=== PATIENT | female | born 1940 | race Caucasian/White ===

== ENCOUNTER 2021-06-15 09:15 | Outpatient (REF) | payer MEDICARE, BC, SELFPAY ==
--- NOTE | 2021-06-16 08:14 | MHC.AU.AEV ---
Adult Audiological Evaluation Date of Visit: 06/15/21 Reason for Appointment: Patient has been noticing gradually increasing hearing difficulty over the last several years. She reports that she had her hearing tested at [facility] several years ago and was told she was almost at the point of needing hearing aids. She has difficulty hearing in groups. She finds herself asking for repetition or mishearing people more often. She also has a history of bilateral tinnitus that seems slightly worse in the left ear. Does patient feel they have a hearing loss?: Yes If Yes, Which Ear?: Both Ears Ear History: Ear Deformity: None Reported Recent Ear Drainage: None Reported Family History of Hearing Loss?: No Recent Ear Infections: None Reported Ear Infections in Childhood: None Reported History of Ear Wax Buildup: None Reported Previous Ear Surgery: None Reported Bothersome Tinnitus/Ringing/Noises in Ears: Both Ears Ear used on the phone: Right Ear Blocked/Full Sensation in Ear(s): None Reported History of occupational noise exposure?: No History: No Medical History: Medical History: 2 Hip replacements, Colon Surgery Otoscopy: Right Ear: Unremarkable Left Ear: Unremarkable Tympanometry: Tympanometry performed due to: To assess integrity of the middle ear system Right Ear: Normal Middle Ear System (Type A) Left Ear: Normal Middle Ear System (Type A) Hearing Evaluation: Transducer(s) Used: Insert Earphones Method: Conventional Audiometry Stimuli Used: Pure Tones Right Ear: Description of Hearing: Borderline/mild to severe sensorineural hearing loss Left Ear: Description of Hearing: Borderline/mild to severe sensorineural hearing loss Speech Recognition Threshold (SRT): Method Used: Recorded Lists Stimuli Used: Spondee Words Right Ear: 25 dBHL Left Ear: 30 dBHL Word Discrimination: Method: Recorded Lists Word Lists Used:: W-22 Right Ear: 92% at 70 dBHL Left Ear: 76% at 70 dBHL Most Comfortable Level (MCL): Right Ear: 70 dBHL Left Ear: 70 dBHL Interpretation of Results: Patient presents with borderline/mild sloping to severe sensorineural hearing loss. With this degree of hearing loss, people often find that while they hear people talking, they have difficulty making out what was said. Speech can seem less clear. Sounds that may be particularly difficult to hear include high-pitched consonants, such as /s/, /sh/, /th/, /f/, /k/, /ch/, /p/, /k/, and /g/. This can lead to misunderstandings (ex. the words mouth and mouse may sound similar). It is more difficult to hear and understand speech when there is background noise, multiple people are talking, or when the person talking is not directly in front of the listener. Recommendations: Audiological re-evaluation in one year. Patient feels she is ready for amplification. See Hearing Aid Evaluation report for details. Diagnosis: Primary Diagnosis: H90.3 Bilateral Sensorineural Hearing Loss Secondary Diagnosis: H93.13 Tinnitus, Bilateral Signature: Provider: Reta Purvis, [facility]
== END 2021-06-15 09:16 | disposition home or self-care (01) ==
LOC: HO.SH 09:15
PROVIDERS: Visit Provider Internal Medicine
DX: H91.90 Unspecified hearing loss, unspecified ear (principal)
CPT/HCPCS: 92557; 92567

== ENCOUNTER 2021-06-15 10:43 | Outpatient (REF) | payer SELFPAY ==
--- NOTE | 2021-06-15 13:35 | MHC.AU.HAS ---
Hearing Aid Evaluation Date of Visit: 06/15/21 Historical Information: Description of Hearing: Mild to severe sensorineural hearing loss bilaterally Summary: Patient was seen for audiological evaluation (see separate report for details). Patient is interested in amplification. She would like a rechargeable model. She has an iPhone. Hearing Aid Prescription: Based on the individual?s shared listening needs, communication environments, dexterity, desire for connectivity, and personal preferences, the following prescription for amplification has been made: Right ear: Consulting Business Developer: Phonak Model: Audeo P70-R Battery Size: Rechargeable Color: P1 Job Press Feeder: 1M Left ear: Consulting Business Developer: Phonak Model: Audeo P70-R Battery Size: Rechargeable Color: P1 Job Press Feeder: 1M Action Taken/Action Needed: Hearing Instrument Fitting to be scheduled when materials arrive Comments: Paid $350 deposit Primary Diagnosis: H90.3 Bilateral Sensorineural Hearing Loss Secondary Diagnosis: H93.13 Tinnitus, Bilateral Signature: Provider: Reta Purvis, CLAUDY-A
== END 2021-06-15 10:44 | disposition home or self-care (01) ==
LOC: HO.HAP 10:43
PROVIDERS: Visit Provider Internal Medicine
DX: Z46.1 Encounter for fitting and adjustment of hearing aid (principal); H90.3 Sensorineural hearing loss, bilateral; H93.13 Tinnitus, bilateral
CPT/HCPCS: 92591

== ENCOUNTER 2021-07-13 12:22 | Outpatient (REF) | payer SELFPAY ==
--- NOTE | 2021-07-13 15:13 | MHC.AU.HFA ---
Hearing Instrument Fitting- Adult- Binaural Date of Visit: 07/13/21 Hearing Instruments Dispensed: Right Ear: Striker Off: Phonak Model: Audeo P70-R Serial Number: [id number] Repair Warranty: 09/16/2024 Loss and Damage Warranty: 09/16/2024 Service Plan: 09/16/2024 Battery Size: Rechargeable Color: P1 Operational Intelligence Officer: 1M Type of Dome: Small Open Type of Wax Guard: CeruShield Left Ear: Striker Off: Phonak Model: Audeo P70-R Serial Number: [id number] Repair Warranty: 09/16/2024 Loss and Damage Warranty: 09/16/2024 Service Plan: 09/16/2024 Battery Size: Rechargeable Color: P1 Operational Intelligence Officer: 1M Type of Dome: Small Open Type of Wax Guard: CeruShield Summary of Fitting: Feedback construction operations manager was run. Verifit performed and levels adjusted to better reach targets. Patient felt 100% target was too loud/echoing. Lowered to 80% target, with improvement. Patient still felt her own voice was louder than usual- counseled that she was speaking at a normal volume, and that she is hearing aspects of her voice she has not heard in awhile. It will take some adjustment to get used to hearing her own voice again. Patient otherwise noted an improvement in understanding of speech. Hearing aid maintenance and use were discussed and practiced. Patient was initially feeling overwhelmed with the amount of new information to learn. We will go over changing the wax guards at the follow-up. We will also discuss whether or not she would like to have us pair them to her iPhone. Recommendations: A hearing instrument follow-up was scheduled. Paid balance of hearing aids. Diagnosis Code(s): Primary Diagnosis: H90.3 Bilateral Sensorineural Hearing Loss Secondary Diagnosis: H93.13 Tinnitus, Bilateral Signature: Provider: Reta Purvis, CLAUDY-A
== END 2021-07-13 12:23 | disposition home or self-care (01) ==
LOC: HO.HAP 12:22
PROVIDERS: Visit Provider Internal Medicine
DX: Z46.1 Encounter for fitting and adjustment of hearing aid (principal); H90.3 Sensorineural hearing loss, bilateral; H93.13 Tinnitus, bilateral
CPT/HCPCS: V5261; V5299

== ENCOUNTER 2023-11-05 17:19 | Emergency (ER) | payer MEDICARE, BC, SELFPAY ==
--- NOTE | ~2023-11-05 | CT_ITS ---
EXAMINATION: CT HEAD WITHOUT CONTRAST, CT CERVICAL SPINE WITHOUT CONTRAST CLINICAL INFORMATION: Head trauma on Xarelto. Neck trauma COMPARISON: None. TECHNIQUE: Multidetector CT examination of the head is performed without contrast. Multidetector CT of the cervical spine without contrast. Multiplanar postprocessing This CT examination was performed using dose optimization techniques as appropriate, variously including the following: *Automated exposure control *Adjustment of mA and/or kV according to patient size (this includes techniques or standardized protocols for targeted exams where dose is matched to indication/reason for exam; i.e. extremities or head) *Use of iterative reconstruction technique DLP: 1076 mGy-cm FINDINGS: Head CT: There is no evidence of a recent intracranial hemorrhage or extra-axial collection. The midline structures are nondisplaced. There is a 0.7 cm hyperdense mass near the foramen of Monro. No significant dilation of the lateral ventricles. No epidural collection. There is no evidence of an intra-axial mass. There are no suspicious focal areas of abnormal brain attenuation. The wells-white interface is within normal limits. There is no evidence of acute territorial infarct. Moderate matter low attenuation possibly related to microangiopathy The paranasal sinuses and mastoids are within normal limits. No fracture demonstrated Cervical CT: There is no acute fracture or subluxation. No suspicious focal lesion or loss of volume. There is disc narrowing. There are marginal osteophytes. There is facet narrowing. There is a solid 4.1 cm left thyroid mass with partial calcification. CT/CT cervical spine wo IV con IMPRESSION: 1. There is no evidence of a recent intracranial hemorrhage. 2. No acute infarct. 3. No acute fracture or subluxation of the cervical spine Small hyperdense mass at the foramen of Monro without hydrocephalus. Small colloid cyst could be present. There is a greater than 4 cm solid left thyroid nodule. Depending upon clinical circumstances recommend ultrasound.
--- NOTE | ~2023-11-05 | CT_ITS ---
EXAMINATION: CT ANGIOGRAM CHEST CLINICAL INFORMATION: Near syncope. COMPARISON: Chest radiograph done earlier the same day. TECHNIQUE: Multiple axial images were obtained through the chest after the administration of 70 mL of Omnipaque 350 intravenous contrast. Extensive vascular post-processing including two-dimensional and three-dimensional reformatted images were created and reviewed on an independent workstation. This CT examination was performed using dose optimization techniques as appropriate, variously including the following: *Automated exposure control. *Adjustment of mA and/or kV according to patient size (this includes techniques or standardized protocols for targeted exams where dose is matched to indication/reason for exam; i.e. extremities or head). *Use of iterative reconstruction technique. DLP: 291 mGy-cm FINDINGS: THORACIC AORTA: The ascending thoracic aorta measures up to 3.9 cm. No significant thoracic aortic dilatation. No dissection. Prominent atherosclerotic plaques throughout the abdominal aorta. The visualized upper abdominal vascular structures are unremarkable. No upper abdominal aortic dilatation. PULMONARY ARTERIES: No significant central or segmental pulmonary embolism; however, evaluation limited secondary to contrast bolus timing. LUNG: Posterior right upper lobe subpleural nodule measuring up to 0.4 cm (axial image 164/611). More anterior right upper lobe pulmonary nodule measuring up to 0.3 cm (axial image 215/611). Right middle lobe pulmonary nodule measuring up to 0.8 x 0.5 cm for an average of 6.5 cm (axial image 329/611). Lateral left upper lobe pulmonary nodule measuring up to 0.4 cm. No large pulmonary mass. No confluent airspace consolidation. The central airways are patent. PLEURA: No pleural effusion or pneumothorax. MEDIASTINUM: Normal heart size. No pericardial effusion. No hilar or mediastinal lymphadenopathy. No evidence of septal bowing or right heart strain. Significantly enlarged and lobulated left thyroid measuring up to 4.8 cm with mass effect in the adjacent superior mediastinal structures. Medial and anterior calcification. Heterogeneous thyroid enhancement. Follow-up ultrasound is recommended. CORONARY ARTERY CALCIFICATION: Present. CHEST WALL/AXILLA: No axillary or internal mammary lymphadenopathy. OSSEOUS STRUCTURES: No acute or suspicious osseous abnormality. UPPER ABDOMEN: Unremarkable. No reflux of contrast into the hepatic veins to suggest elevated right heart pressures. CT/CT angio chest aorta IMPRESSION: 1. No thoracic aortic dilatation or dissection. Prominent atherosclerotic plaques throughout the visualized abdominal aorta. 2. Multiple bilateral pulmonary nodules measuring up to 6.5 cm on the right. According to the UPDATED 2017 Fleischner Society recommendations, the advised follow-up imaging for a single 6-8 mm solid nodule is follow-up CT at 6 to 12 months. In high-risk patients, subsequent CT follow-up at 18 to 24 months is recommended. In low-risk patients, subsequent CT follow-up at 18 to 24 months is optional. 3. No confluent airspace consolidation. 4. Significantly enlarged and lobulated left thyroid measuring up to 4.8 cm with mass effect in the adjacent superior mediastinal structures. Follow-up ultrasound is recommended. VTE: Negative. Fleischner guidelines were followed.
--- NOTE | ~2023-11-05 | XR_ITS ---
EXAMINATION: XR CHEST CLINICAL INFORMATION: Weakness, fall. COMPARISON: None available. TECHNIQUE: AP view of the chest was obtained. FINDINGS: Mild diffuse interstitial prominence. No focal consolidation or pleural effusion. No pulmonary edema. Nonspecific widening of the cardiomediastinum at the level of the thoracic inlet. Moderate to severe vascular calcifications in the aortic arch. Normal heart size. Degenerative changes of the shoulders. No acute osseous findings. XR/XR chest 1V IMPRESSION: 1. Nonspecific widening of the cardiomediastinum at the level of the thoracic inlet. Further evaluation with a CT chest with IV contrast could be obtained as clinically warranted. 2. Mild diffuse interstitial prominence which could be seen acutely in the context of small airways disease or chronically in the context of COPD, emphysema or interstitial lung disease. 3. No consolidation or pleural effusion. No pneumothorax. 4. No displaced rib fractures.
--- NOTE | 2023-11-05 17:48 | ECG_ITS ---
Test Reason : FALL Blood Pressure : / mmHG Vent. Rate : 064 BPM Atrial Rate : 064 BPM P-R Int : 172 ms QRS Dur : 134 ms QT Int : 498 ms P-R-T Axes : 079 153 014 degrees QTc Int : 513 ms Sinus rhythm with Premature atrial complexes Right bundle branch block Abnormal ECG No previous ECGs available Referred By: Muriel Guidry Electronically Signed By:Javy Wallace
[2023-11-05 17:49] VITALS: BP 139/79; BP 80/40; PULSE 66; PULSE 80; RESP 18; TEMP 36.6; O2SAT 97; O2SAT 98; BMI 22.6
--- NOTE | 2023-11-05 17:53 | ED.FALL ---
HPI - Fall General Chief Complaint: Fall Stated Complaint: Multiple falls/low BP, +collar per ems Source: patient, family and old records reviewed Mode of arrival: EMS Limitations: other (patient is a poor historian) History of Present Illness HPI Narrative: 83 yo female with PMH of PAF on xarelto, ectatic aorta, fatty infiltration of the liver, memory loss, BONNY, prolonged qtc interval, pulmonary embolus, colon cancer 2017 s/p transverse hemicolectomy and prior near syncope work ups at [facility] she states a few admissions with negative findings. She comes in tonight with c/o the past week having a hard time when she gets up from the rollator she uses then turns quickly to the right. She then ends up on the floor but has no LOC. She has hit her head. She came in today with c/o intermittent falls, contusion to head. She wants to know why this keeps happening to her. Has fallen about 4 times in 3 days. Hx of falls last Thanks and then this Thanks. complaint: fall Onset (ago): week(s) (1) Fall from: standing Fall witnessed: no Place fall occurred: home Loss of consciousness: none Prolonged down time: no Symptoms prior to fall: other (denies states she stands up then turns and falls) Context: history of frequent falls Location of injury: head Severity: moderate Associated symptoms (after fall): denies Related Data Allergies Allergy/AdvReac Type Severity Reaction Status Date / Time acetaminophen [From Percocet] Allergy Unknown Verified 11/05/23 17:52 morphine Allergy Nightmare Verified 11/05/23 17:52 oxycodone [From Percocet] Allergy Unknown Verified 11/05/23 17:52 Review of Systems Review of Systems: Constitutional : No Fever, No Chills, No Fatigue ENT/Mouth : No sore throat, No Rhinorrhea Eyes: No Eye Pain, No Swelling, No Redness Cardiovascular : No Chest Pain, No SOB, No Dyspnea on Exertion Respiratory : No Cough, No Sputum Gastrointestinal : No Nausea, No Vomiting, No Diarrhea, No abdominal Pain Genitourinary : No Dysuria, No Urinary Frequency, No Hematuria, Musculoskeletal : No joint pain, No Myalgias, No Joint Swelling Skin : No Skin Lesions, No rash Neuro : No Weakness, No Numbness, No Dizziness, positive Headache, pos syncope Psych : No Anxiety/Panic, No Depression All other systems reviewed and are negative [facility] Past Medical History Attestation statement: The following information was validated with the patient. Medical History (Updated 11/05/23 @ 21:56 by Muriel Guidry DO) Internal bleeding Falls Atrial fibrillation Social History Social History (Updated 11/05/23 @ 17:59 by Muriel Guidry DO) Patient Tobacco Use Status: Never used Tobacco Smoked in Last 30 Days: No Use of substances other than those prescribed or required for medical reasons: No Advance Directives: No Advance Directives Information Provided: No Physical Exam Vital Signs: Vital Signs: Last Vital Signs Temp 98.2 F 11/05/23 21:39 Pulse 72 11/05/23 21:39 Resp 20 11/05/23 21:39 BP 161/89 H 11/05/23 21:39 Pulse Ox 98 11/05/23 21:39 O2 Del Method Room Air 11/05/23 21:39 BMI result Body Mass Index 22.6 Appearance: Alert. Oriented X3. No acute distress. Eyes: Pupils equal, round and reactive to light. ENT: Pharynx normal. R parietal scalp contusion noted Neck: Normal inspection. Neck supple. no midline ttp CVS: Normal heart rate and rhythm. Pulses normal. Respiratory: No respiratory distress. Breath sounds normal. Abdomen: Soft and non-tender. Skin: Skin warm and dry. Normal skin color. Normal skin turgor. Extremities: No lower extremity edema. No calf ttp Neuro: Oriented X 3. No motor deficit. No sensory deficit. Course Course Course Narrative: mild drop in orthostatics but did not become hypotensive CXR abnormal CTA ordered Reevaluation(s) Reevaluation #1: records from [facility] only show urgent care there is no record of visit with internal bleeding - call sent again Reevaluation #2: repeat call to [facility] they cannot access records right now 921pm signed out to Dr. Lopez pending UA and PT/CM CTA no vasovagal syncope she has not had LOC no resp issues will consult onc in AM for outpatient follow up and biopsy Medications Administered Discontinued Medications Generic Name Dose Route Start Last Admin Trade Name Freq PRN Reason Stop Dose Admin Sodium Chloride 500 mls @ 500 mls/hr 11/05/23 19:30 11/05/23 21:00 Ns IV 11/05/23 20:29 Infused .Q1H RAJEEV Infusion Iohexol 100 ml 11/05/23 20:52 11/05/23 20:52 Iohexol 350 Mg/Ml 100 Ml Infus..Btl IV 11/05/23 20:53 70 ml ONCE ONE Administration Medical Decision Making Medical Decision Making [facility] Narrative: 83 yo female from home with PAF on xarelto here with c/o recurrent falls when she gets up to stand. At this time will need basic labs, orthostatic VS, EKG, CT head/cspine given age and DOAC use with headstrike though no LOC. Possible anemia, orthostatic hypotension. She tells me she has been admitted more than once at [facility] for this with negative workup she has not seen PT for gait issues. If work up negative may refer to PT in AM for gait issues and concerns. Differential Diagnosis Differential Diagnoses: The differential diagnosis associated with the presentation includes orthostatic hypotension, gait instability, weakness, anemia, dehydration Admission/Observation Consideration of admission/observation: Escalation of care including admission/observation considered observe at minimum for falls pending UA Lab Data [facility] Lab Attestation statement: I reviewed the patient's lab results. 11/05/23 20:02 11/05/23 20:02 Labs: Lab Results 11/05/23 Range/Units 20:02 WBC 8.2 (4.8-10.8) X10*3/uL RBC 4.31 (4.20-5.50) X10*6/uL Hgb 13.3 (12.0-16.0) g/dl Hct 38.3 (37.0-47.0) % MCV 88.9 (80.0-98.0) fL MCH 30.9 (27.0-33.0) pg MCHC 34.7 (31.0-35.0) g/dl RDW 13.9 (11.0-16.0) % Plt Count 234 (160-400) X10*3/uL MPV 9.8 (9.4-12.3) fL Immature Gran % (Auto) 1.0 H (0.0-0.4) % Neut % (Auto) 73.6 H (45-73) % Lymph % (Auto) 14.9 L (20-40) % Bibb % (Auto) 9.8 (2-11) % Eos % (Auto) 0.2 (0-4) % Baso % (Auto) 0.5 (0-2) % Lymph # (Auto) 1.2 (1.2-4.9) X10*3/uL Bibb # (Auto) 0.8 (0.1-1.2) X10*3/uL Eos # (Auto) 0.0 (0.0-0.4) X10*3/uL Baso # (Auto) 0.0 (0.0-0.2) X10*3/uL Abs Immat Gran (auto) 0.08 H (0.00-0.03) X10*3/uL Absolute Neuts (auto) 6.0 (2.0-8.3) x10*3/uL Absolute Nucleated RBC 0.000 (0.0-0.012) X10*3/uL Nucleated RBC % (auto) 0.0 (0.0-0.2) /100WBC Sodium 140 (135-145) mmol/L Potassium 4.3 (3.3-5.1) mmol/L Chloride 105 (96-108) mmol/L Carbon Dioxide 29 (22-29) mmol/L Anion Gap 10 L (12-20) BUN 15 (9-16) mg/dL Creatinine 0.85 (0.5-1.4) mg/dL Estim Creat Clear Calc 46.9 Estimated GFR > 60 Random Glucose 97 (60-115) mg/dL Calcium 9.2 (8.4-10.2) mg/dL Magnesium 2.1 (1.6-2.6) mg/dL Total Bilirubin 0.9 (0.0-1.0) mg/dL Direct Bilirubin 0.4 (0.0-0.5) mg/dL AST 35 H (5-31) U/L ALT 28 (0-31) U/L Alkaline Phosphatase 45 (39-117) U/L Total Creatine Kinase 27 (26-140) U/L Troponin I High Sens 10.2 (<3.5-17.0) ng/L Total Protein 5.9 L (6.5-8.0) g/dL Albumin 3.5 (3.5-5.0) g/dL Lipase 11 (8-78) U/L TSH 1.36 (0.32-4.0) uIU/mL Independent Interpretation I performed an independent interpretation of an: EKG, Plain X-Ray and CT Scan (abnormal lungs and large thyroid nodule) Interpretation: Rate: 64 Rhythm: NSR with PACs [place]: normal Normal P waves. Normal TATA. RBBB ST T wave : no CHUCK, inverted t waves V1-V3 qTC: 513 prior studies: no prior The study has been interpreted contemporaneously by me. . Radiology Impression Discussion of test interpretation with radiology: I have reviewed the radiologist's reading. Independent Historian Clinical information obtained from an independent historian. History obtained from or confirmed by: EMS and Other (daughter) External Record Review External record reviewed: Outpatient record Discharge Plan Discharge Clinical Impression: Recurrent falls, Lung nodule, Left thyroid nodule Patient Disposition: Still a Patient Additional Instructions: Small hyperdense mass at the foramen of Monro without hydrocephalus. Small colloid cyst could be present. primary care should monitor regularly with CT scan or MRI for signs of hydrocephalus can also refer to neurosurgery or Neurology
[2023-11-05 17:59] VITALS: RESP 18
[2023-11-05 18:16] VITALS: BP 144/79; PULSE 62
[2023-11-05 18:17] VITALS: BP 145/68; PULSE 99
[2023-11-05 18:18] VITALS: BP 121/76; PULSE 87
[2023-11-05] MEDS: 0.9 % Sodium Chloride 500 ML IV (20:00)
[2023-11-05 20:09] LABS: MANUAL DIFF FLAG NO
[2023-11-05 20:12] LABS: Basophils Percent Auto 0.5 % (0-2); Eosinophils Percent Auto 0.2 % (0-4); Hematocrit 38.3 % (37.0-47.0); Hemoglobin 13.3 g/dl (12.0-16.0); Imm Gran Abs Auto 0.08 X10*3/uL (0.00-0.03); Lymphocytes Absolute Auto 1.2 X10*3/uL (1.2-4.9); Lymphocytes Percent Auto 14.9 % (20-40); Mean Corpuscular HGB Conc 34.7 g/dl (31.0-35.0); Mean Corpuscular Hemoglobin 30.9 pg (27.0-33.0); Mean Corpuscular Volume 88.9 fL (80.0-98.0); Mean Platelet Volume 9.8 fL (9.4-12.3); Monocytes Absolute Auto 0.8 X10*3/uL (0.1-1.2); Monocytes Percent Auto 9.8 % (2-11); Neutrophils Percent Auto 73.6 % (45-73); Platelet Count 234 X10*3/uL (160-400); Red Blood Count 4.31 X10*6/uL (4.20-5.50); Red Cell Distribution Width 13.9 % (11.0-16.0); White Blood Count 8.2 X10*3/uL (4.8-10.8)
[2023-11-05 20:27] LABS: Alanine Aminotransferase 28 U/L (0-31); Albumin Level 3.5 g/dL (3.5-5.0); Alkaline Phosphatase 45 U/L (39-117); Anion Gap 10 (12-20); Aspartate Amino Transferase 35 U/L (5-31); Bilirubin Direct 0.4 mg/dL (0.0-0.5); Bilirubin Total 0.9 mg/dL (0.0-1.0); Blood Urea Nitrogen 15 mg/dL (9-16); Calcium 9.2 mg/dL (8.4-10.2); Carbon Dioxide 29 mmol/L (22-29); Chloride 105 mmol/L (96-108); Creatinine Clr Calc Pharmacy 46.9; Estimated Glomerular Filt Rate > 60; Glucose Random 97 mg/dL (60-115); Lipase 11 U/L (8-78); Magnesium 2.1 mg/dL (1.6-2.6); Potassium 4.3 mmol/L (3.3-5.1); Sodium 140 mmol/L (135-145); Total Protein 5.9 g/dL (6.5-8.0)
[2023-11-05 20:34] LABS: Troponin-I High Sensitivity 10.2 ng/L (<3.5-17.0)
[2023-11-05] MEDS: iohexoL 350 MG/ML 100 ML INFUS..BTL IV (20:52)
[2023-11-05 21:39] VITALS: BP 161/89; PULSE 72; RESP 20; TEMP 36.8; O2SAT 98
[2023-11-05 21:48] LABS: TSH reflex Free T4 1.36 uIU/mL (0.32-4.0)
[2023-11-05 22:02] LABS: Appearance Urine Cloudy; Color Urine Yellow; Glucose Urine UA Negative (Negative); Leukocyte Esterase Urine Large (3+) (Negative); Nitrite Urine Negative (Negative); PH 7.5 (5.0-9.0); Specific Gravity - Urine >= 1.030 (1.005-1.025); UMIC TRIGGER UACC YES; Urine Blood Negative (Negative); Urine Ketones Trace mg/dL (Negative); Urine Protein Trace mg/dL (Neg-Trace)
[2023-11-05 22:22] LABS: Bacteria Urine 4+ (None Seen); Calcium Oxalate Crystals Urine Present; RBC Urine 0-2 /HPF (0-2); Squamous Epithelial Cell Urine 0-2 /HPF (0-2); UACC Culture Trigger YES; WBC Urine >50 /HPF (0-5)
[2023-11-06 00:19] VITALS: BP 147/77; PULSE 65; RESP 12; TEMP 36.7; O2SAT 97
--- NOTE | 2023-11-06 02:07 | MHC.EDTECH ---
This tech took over care of patient at 0100AM,Patient was changed into hospital attire,hourly;y rounds completed patient was a 2 assist to commode,patient was unsteady,urinated a moderate amount,graciela-care giving. Belongings list completed and copy placed in chart,call marshall in reach
[2023-11-06 04:03] VITALS: RESP 16
--- NOTE | 2023-11-06 04:05 | MHC.EDTECH ---
Hourly rounds completed,patient is resting comfortably at this time,call marshall in reach
[2023-11-06 05:46] VITALS: BP 148/80; PULSE 60; RESP 18; TEMP 36.8; O2SAT 97
--- NOTE | 2023-11-06 05:47 | MHC.EDTECH ---
Hourly rounds and vitals completed,patient is resting comfortably at this time,call marshall in reach
[2023-11-06 07:08] VITALS: BP 156/78; PULSE 63; RESP 16; TEMP 36.4; O2SAT 99
[2023-11-06 09:05] LABS: COVID-19 Test Negative (Negative); IDNOW Serial# 152EDE1D
--- NOTE | 2023-11-06 09:20 | PC.NURSE ---
this nurse took over patient care at 9am, patient a&ox3, vitals previously stable, respirations equal/non labored- rll has crackles, pt walks with walker at baseline, pt stating they would like to go to [facility] for continued PT as they stated they have been to this facility three separate times- major case detective was notified of this. pt hospital attire was changed as they had spilled water on it and blankets- new blankets obtained for pt comfort, family at bedside, call marshall within reach, will continue to monitor
--- NOTE | 2023-11-06 12:14 | PC.NURSE ---
Vero number [phone]- Poppy Lowery
--- NOTE | 2023-11-06 12:31 | PHA.MEDREC ---
Pharmacy Consult ? Medication Reconciliation Pharmacy has completed the medication reconciliation with the pt, pt had all medications with her.
--- NOTE | 2023-11-06 12:31 | PC.NURSE ---
daughter was upset that no provider or case management have gone in to see her mother, she expressed that this is not how things occur at [facility] and is upset with the flow of things in our ED. Clinical coordinator was notified of the daughters displeasement of how things are going. Daughter also questioned medications- this nurse did a med req with the daughter as per pharmacy the patient was unable to verify her own medications last evening. The patient and daughter verified medications and provider was notified and medications ordered. Pharmacy requesting one of the medications that is not available.
--- NOTE | 2023-11-06 12:34 | PC.NURSE ---
report given to anna gonzales to go to overflow per charge
[2023-11-06] MEDS: oxyBUTYnin chloride ER 5 MG TAB.ER.24 PO (13:33)
[2023-11-06] MEDS: Amiodarone HCL 200 MG TABLET 400 MG PO (13:34)
[2023-11-06] MEDS: Escitalopram Oxalate 10 MG TABLET PO (13:34)
--- NOTE | 2023-11-06 14:30 | PC.NURSE ---
medicated as ordered, eating lunch, denies any pain, states she has been losing her balance and has had 3 falls recently, interested in short term rehab and meeting with case management now
--- NOTE | 2023-11-06 15:25 | MHC.CM.ED ---
Addendum entered by Ludivina Fajardo 11/06/23 16:25: [facility] is [facility] choice. They do not have a bed available. [facility] is 2nd choice. They are able to offer a bed. Isaac Eason has been asked to obtain ins [facility]. Original Note: Received case management consult overnight. Rj came to the ER due to falls. Work up essentially negative. Physical therapy eval completed. Short term rehab is recommended. Met with patient and daughter, Pratibha in regards to discharge planning. Patient lives alone, ambulates with a walker and has private pay home health aide. PCP verified. Copy of HCP obtained from [facility]. Patient has been to [facility] in the past and requesting to go there. Patient has [employer] Medicare Advantage Plan. Referral made to [facility]. [facility] is not able to offer a bed because won't authorize. Referral broadcasted in [facility] to all facilities within 15 miles of patient's residence that are contracted [facility]. The following facilities are able to offer a bed: [facility], [facility], [facility], [facility], [facility], [facility]. These options were discussed with patient and rPatibha. Both will look at this list and provide CM with first choice. Continue to monitor for d/c needs.
--- NOTE | 2023-11-06 17:13 | MHC.CM.ED ---
Received telephone call from [facility]. Per liaison, patient's primary insurance is Medicare and her Blue Cross Blue plan is secondary. They were told that by [employer]. They will investigate her insurance coverage, but if Medicare is primary, then patient does not have a qualifying stay. Liaison will call CM in the morning.
--- NOTE | 2023-11-06 19:00 | PC.NURSE ---
Assumed care of patient at this time. Patient laying comfortably in bed, resting. No complaints at this time.
[2023-11-06] MEDS: Rivaroxaban 20 MG TABLET PO (21:25)
[2023-11-06 22:00] VITALS: BP 137/71; PULSE 59; RESP 18; TEMP 36.9; O2SAT 94
[2023-11-07 05:59] VITALS: BP 177/86; PULSE 67; RESP 20; TEMP 36.6; O2SAT 98
--- NOTE | 2023-11-07 10:03 | PC.NURSE ---
patient one assist onto commode for bowel movement. looking for update on her care and what she is doing here at this time. patient informed of the need for short term rehab d/t multiple falls at home.
[2023-11-07] MEDS: Amiodarone HCL 200 MG TABLET 400 MG PO (10:28)
[2023-11-07] MEDS: Escitalopram Oxalate 10 MG TABLET PO (10:28)
[2023-11-07] MEDS: oxyBUTYnin chloride ER 5 MG TAB.ER.24 PO (10:28)
--- NOTE | 2023-11-07 10:48 | PC.NURSE ---
patient in recliner at this time, medicated per the MAR. offering no complaints, respirations even and unlabored. daughter to come visit patient this afternoon.
--- NOTE | 2023-11-07 12:19 | MHC.CM.ED ---
Addendum entered by Ludivina Fajardo 11/07/23 13:36: Patient and Pratibha accept a bed at [facility]. Private Pay has been arranged. Fernando HOFFMANN booked for 330pm. Patient, Pratibha, Nataliya PENNY and Nataliya HERR aware. Original Note: Patient remains in ER overflow. Confirmed with insurance verification that Medicare is primary insurance. Blue cross is supplemental. Reached out to [facility]. They are still not able to offer a bed. Referral sent to [facility]. Neither feel patient is an acute rehab candidate. Patient has not had a qualifying stay. Referral re-sent in [facility] to facilities for private pay beds. The following facilities are able to offer a bed: [facility], [facility], [facility], [facility], [facility] and [facility]. Will discuss these options with patient and daughter. Continue to monitor for d/c needs.
--- NOTE | 2023-11-07 12:42 | PC.NURSE ---
case management and daughter at bedside
--- NOTE | 2023-11-07 13:38 | PC.NURSE ---
Pt's home medication bottle given to daughter per request.
[2023-11-07 14:00] VITALS: BP 140/70; PULSE 70; RESP 17; TEMP 36.6; O2SAT 96
== END 2023-11-07 15:38 ==
PROVIDERS: Emergency Medicine; Physician Assistant Medical; Emergency Provider Emergency Medicine Emergency Medical Services; PCP Family Medicine
DX: S09.90XA Unspecified injury of head, initial encounter (principal); R51.9 Headache, unspecified; M54.2 Cervicalgia; R26.2 Difficulty in walking, not elsewhere classified; R30.0 Dysuria; E04.1 Nontoxic single thyroid nodule; I45.10 Unspecified right bundle-branch block; R94.31 Abnormal electrocardiogram [ECG] [EKG]; W01.10XA Fall on same level from slipping, tripping and stumbling with subsequent striking against unspecified object, initial encounter; Y93.9 Activity, unspecified; Y92.9 Unspecified place or not applicable; Y99.8 Other external cause status; Z11.52 Encounter for screening for COVID-19; Z79.01 Long term (current) use of anticoagulants; Z79.899 Other long term (current) drug therapy; Z91.81 History of falling
CPT/HCPCS: 36415; 51701; 70450; 71045; 71275; 72125; 80048; 80076; 81001; 81003; 82550; 83690; 83735; 84443; 84484; 85025; 87086; 87635; 93005; 96360; 97162; 99285; Q9967

== ENCOUNTER → 2023-11-05 17:48 | Outpatient (BNV) | payer MEDICARE, BC, SELFPAY | PROVIDERS: Emergency Provider Emergency Medicine Emergency Medical Services; PCP Family Medicine; Visit Provider Internal Medicine Cardiovascular Disease | DX: I49.1 Atrial premature depolarization (principal); R94.31 Abnormal electrocardiogram [ECG] [EKG] | CPT/HCPCS: 93010 ==